=== PATIENT | female | born 1945 | race Caucasian/White ===

== ENCOUNTER 2022-12-05 10:26 | Emergency (ER) | payer OTHER, SELFPAY ==
[2022-12-05 10:42] VITALS: BP 166/80; PULSE 65; RESP 24; TEMP 36.3; O2SAT 95; BMI 25.0
--- NOTE | 2022-12-05 11:02 | ED.BACK ---
HPI - Back Pain/Injury General Time Seen by Provider: 11:02 Date Seen: 12/05/22 Chief Complaint: Back Injury/Pain Stated Complaint: Sciatic nerve pain Time Seen by Provider: 12/05/22 11:01 Source: patient, RN notes reviewed and old records reviewed Mode of arrival: ambulatory Limitations: no limitations History of Present Illness HPI Narrative: Patient is a 77-year-old female coming in with left lumbar radiculopathy, goes down the outside anterior thigh and stops below the knee. She feels pins and needle sensation in the outer thigh. Last night she could not get comfortable, did not sleep well. She adamantly denies trauma, no fevers. She does not remember when she last had imaging of this or if there has been imaging. She states she has had some much done that she cannot remember. She denies any bowel or bladder dysfunction or incontinence. She is still able to walk, has noted no strength issues. She has tried Tylenol and ibuprofen, these did not help at all. She is on Coumadin for reported heart valve. We did look into her [facility] records, see no recent pain medicines for her, no recent back imaging. She states she called the clinic today and they referred her here to the ER because they could not get her in. Did look on [place] prescribing website, no narcotics or monitored medicines given. MD elicited complaint: back pain Pertinent past history: prior back pain Treatments prior to arrival: NSAIDS and acetaminophen Work related injury: No Related Data Home Medications Medication Instructions Recorded Confirmed bisoprolol fumarate 5 mg tablet 2.5 mg PO DAILY 12/05/22 12/05/22 ezetimibe 10 mg tablet 10 mg PO DAILY 12/05/22 12/05/22 hydroxyzine HCl 25 mg tablet 50 mg PO Q6H PRN anxiety 12/05/22 12/05/22 prednisolone acetate 1 % eye drp ophthalmic (eye) 12/05/22 drops,suspension rosuvastatin 40 mg tablet 40 mg PO QPM 12/05/22 12/05/22 sertraline 100 mg tablet 200 mg PO DAILY 12/05/22 12/05/22 warfarin 1 mg tablet mg PO 12/05/22 Allergies Allergy/AdvReac Type Severity Reaction Status Date / Time No Known Drug Allergies Allergy Verified 12/05/22 10:44 Review of Systems Status of ROS: Reports: 6 or more systems reviewed and unremarkable except as noted in History and below Exam Const: Vital Signs, click to edit/add: Vital Signs - 24 hr 12/05/22 10:42 12/05/22 12:49 Temperature 97.3 F L Pulse Rate [Pulse Oximeter] 65 56 L Respiratory Rate 24 Blood Pressure [Ri ght Upper Arm] 166/80 H 165/92 H Pulse Oximetry 95 95 Oxygen Delivery Me thod Room Air Room Air Documenting provider has reviewed patient's vital signs: yes Common normals: no apparent distress, average body habitus, oriented x3, no limitations, healthy appearing and alert General appearance: cooperative, comfortable, well kempt and well developed HENMT: Common normals: normocephalic, head/scalp atraumatic and hearing grossly normal bilaterally Head and scalp: normocephalic and atraumatic Face and sinus: normal facial exam : Common normals: no CVA tenderness Bladder/kidney exam: no CVA tenderness Back & Pelvis: Common normals: no CVA tenderness, thoracic and lumbar spine normal to inspection, no thoracic nor lumbar tenderness, thoraco-lumbar ROM normal and straight leg raise negative bilaterally Sacroiliac joints: SI joints normal Other: Patient is able to ambulate in the room without any difficulty. Can go up on her heels and toes. , negative straight leg raise bilaterally. No lower extremity edema. She feels sensation symmetrically although she states on the left outer thigh a she does have a pins and needle sensation. She can still feel me touch. Strength is 5/5 and symmetric through the hip knees ankles toes bilaterally. Neuro: Common normals: oriented x3 Sensorium/orientation: alert Psych: Appearance: well kempt Course Course Hospital Course: Will obtain basic lumbar spine images of this patient to have an idea of underlying back pathology. This certainly seems like a probable lumbar radiculopathy on the left which could be discogenic in nature or facet impingement. If we see any evidence of any significant compression fractures, potential for further imaging may be indicated. Otherwise, will need to figure out a treatment plan for her and likely discharge to home with follow-up in the clinic. Reevaluation(s) Time of Reevaluation #1: 12:45 Reevaluation #1: Did let patient know that we were awaiting imaging results. She wants to know how long it will be. I have reviewed with her that I have no idea how many films are in line for the radiologist to read, I cannot see that. I have asked for her patience. She states that she is in pain. I reviewed with her that I really have nothing to give her here outside of narcotics and I cannot give her those here with driving. I certainly will manage her pain upon discharge. Time of Reevaluation #2: 13:25 Reevaluation #2: Reviewed with patient that she has significant arthritic changes on her lumbar spine. 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 We did review with being on Coumadin that she should avoid NSAIDs. She did know this. Will have her take Tylenol baseline for pain. Will try her on some tramadol. I do think she is going to need to follow up in clinic, do highly recommend that she see physical therapy and will give her a referral for this. Patient has requested her medicines from [facility], will give smallest amount which is 15 tablets. Vital Signs Vital signs: Initial Vital Signs Temperature 97.3 F L 12/05/22 10:42 Temperature Source Temporal Artery Scan 12/05/22 10:42 Pulse Rate 65 12/05/22 10:42 Respiratory Rate 24 12/05/22 10:42 Blood Pressure 166/80 H 12/05/22 10:42 Blood Pressure Mean 108 H 12/05/22 10:42 Blood Pressure Position Sitting 12/05/22 10:42 Pulse Oximetry 95 12/05/22 10:42 Oxygen Delivery Method Room Air 12/05/22 10:42 Vital Signs Temperature 97.3 F L 12/05/22 10:42 Pulse Rate 65 12/05/22 10:42 Respiratory Rate 24 12/05/22 10:42 Blood Pressure 166/80 H 12/05/22 10:42 Pulse Oximetry 95 12/05/22 10:42 Oxygen Delivery Method Room Air 12/05/22 10:42 Temperature 97.3 F L 12/05/22 10:42 Pulse Rate 56 L 12/05/22 12:49 Respiratory Rate 24 12/05/22 10:42 Blood Pressure 165/92 H 12/05/22 12:49 Pulse Oximetry 95 12/05/22 12:49 Oxygen Delivery Method Room Air 12/05/22 12:49 MDM - Back Pain/Injury Imaging Data XR lumbar spine: Attestation: I have reviewed the pertinent imaging results. My impression: See significant degenerative changes in the lumbar spine, wait radiology over-read. Radiologist's impression: Patient: ANTON BOBBY Facility:?[facility] Patient ID:?[id number] Site Patient ID:?[id number]. Site :?[id number] Study:?XRay Spine Lumbar 3 VIEW-12/05/2022 12:28:32 PM Ordering Physician:Noel Connolly Final Report: INDICATION: Radiculopathy. TECHNIQUE: Lumbar spine 3 view. COMPARISON: None. FINDINGS: Bones: 5 [id number], lumbar type vertebral bodies. Mild convex rightward curvature centered at L2. Posterior spinal lamina is within normal limits. Vertebral body heights maintained and no acute fracture. Joints: Moderate to severe disc space narrowing at all lumbar levels. Mid and lower lumbar facet arthrosis. Soft tissues: Aortoiliac atherosclerosis.. Dictated by Sunny Julian MD @ 12/05/2022 1:09:36 PM (Electronic Signature) Discharge Plan Discharge Clinical Impression: Lumbar radiculopathy, Degenerative arthritis of lumbar spine Patient Disposition: Home, Self-Care Condition: Stable Instructions: Lumbar Radiculopathy (ED) Additional Instructions: Use Tylenol 1000 mg 3 times a day baseline for pain. Have written for tramadol 50 mg, 1 every 6 hours as needed. You should not drive for at least 8 hours after taking the tramadol or until you are not feeling side effects from tramadol. Tramadol is a narcotic, this certainly can make you dizzy, lightheaded, increased risk of falls. Use this medicine carefully. Do need you to schedule a follow-up clinic appointment for next week. I have given you a physical therapy referral form, please contact them to get set up for this. If you have increasing pain associated with leg motor weakness, any bowel or bladder dysfunction, do need to be re-evaluated. Activity Level: Activity as Tolerated Prescriptions: No Action sertraline 100 mg tablet 200 mg PO DAILY bisoprolol fumarate 5 mg tablet 2.5 mg PO DAILY prednisolone acetate 1 % drops,suspension ophthalmic (eye) hydroxyzine HCl 25 mg tablet 50 mg PO Q6H PRN (Reason: anxiety) warfarin 1 mg tablet PO ezetimibe 10 mg tablet 10 mg PO DAILY rosuvastatin 40 mg tablet 40 mg PO QPM Stand Alone Forms: [employer] Info Instructions
--- NOTE | 2022-12-05 11:17 | XR_ITS ---
Final Report Patient: ANTON BOBBY Facility:?[facility] Patient ID:?[id number] Site Patient ID:?[id number]. Site :?1945 Study:?XRay Spine Lumbar 3 VIEW-12/05/2022 12:28:32 PM Ordering Physician:?Court Connolly Final Report: INDICATION: Radiculopathy. TECHNIQUE: Lumbar spine 3 view. COMPARISON: None. FINDINGS: Bones: 5 [id number], lumbar type vertebral bodies. Mild convex rightward curvature centered at L2. Posterior spinal lamina is within normal limits. Vertebral body heights maintained and no acute fracture. Joints: Moderate to severe disc space narrowing at all lumbar levels. Mid and lower lumbar facet arthrosis. Soft tissues: Aortoiliac atherosclerosis.. Dictated by Sunny Julian MD @ 12/05/2022 1:09:36 PM (Electronic Signature)
--- NOTE | 2022-12-05 12:05 | ED.NURSE ---
Addendum entered by Douglas Bui RN 12/05/22 12:28: was notified of this interaction. Original Note: Pt left room and approached nurses station to complain of not seeing the doctor in some time. Pt states Where is she? [the doctor]. Electric Tape Slitter explained the ER was quite busy and the doctor is seeing other patients at this time. Pt expressed frustrated that doctor has not followed up with her. Pt has already been seen initially by the doctor and pt has been waiting approx 30 mins since then. Electric Tape Slitter explained again that the ER is quite busy at this time and I would notify the doctor that the patient would like to speak to her again. 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 Pt states that my pain is killing me. Electric Tape Slitter expressed empathy and again repeated that I would notify the doctor that the pt would like the doctor to follow up with her again. Electric Tape Slitter explained again that the ER was quite busy and I could not guarantee how quickly the doctor would be back to see her. Pt states So that means I'm at the bottom of the totem pole?. Pt then returned to her room. Imaging then arrived to do an xray as ordered by .
[2022-12-05 12:49] VITALS: BP 165/92; PULSE 56; O2SAT 95
== END 2022-12-05 13:44 | disposition home or self-care (01) ==
PROVIDERS: Emergency Provider Family Medicine; PCP Family Medicine
DX: M54.16 Radiculopathy, lumbar region (principal); M47.26 Other spondylosis with radiculopathy, lumbar region
CPT/HCPCS: 72100; 99283